=== PATIENT | male | born 1950 | race Caucasian/White ===

== ENCOUNTER 2016-07-27 12:48 | Inpatient (IN) | payer BC ==
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
--- NOTE | 2016-07-27 14:28 | DX ---
Left hip 2 views History: Skiing, fall, left hip pain. Comparison: None available. Findings: There is a minimally displaced subcapital fracture of the left femoral neck. The femoral he ad is not dislocated. Osteopenia is present. Impression: Minimally displaced subcapital left femoral neck fracture.
--- NOTE | 2016-07-27 14:45 | CPEKG ---
Heart Rate: 78 RR Interval: 769 P-R Interval: 168 QRSD Interval: 104 QT Interval: 380 QTC Interval: 433 P [place]: 64 QRS [place]: 46 T Wave [place]: 54 EKG Severity - NORMAL ECG - EKG Impression: SINUS RHYTHM Electronically Signed By: aMddie Locke 27-Jul-2016 21:51:27
[2016-07-27] MEDS ORDERED: HYDROmorphONE/DILAUDID 1 MG/ML SYR ONE (14:46)
[2016-07-27 14:51] LABS: % IMMATURE GRANULYOCYTES 0.4 % (0.0-1.1); ABSOLUTE IMMATURE GRANULOCYTES 0.05 10^3/uL (0.00-0.10); ADD DIFF? NO; ADD MORPH? NO; ADD SCAN? NO; ATYPICAL LYMPHOCYTE FLAG 0 (0-99); FRAGMENT RBC FLAG 0 (0-99); HEMATOCRIT 48.1 % (40.0-51.0); HEMOGLOBIN 17.5 g/dL (13.7-17.5); LEFT SHIFT FLG 0 (0-99); LIPEMIA HEMOLYSIS FLAG 90 (0-99); MEAN CELL HEMOGLOBIN 34.8 pg (27.9-34.1); MEAN CELL HEMOGLOBIN CONCENTR. 36.4 g/dL (32.4-36.7); MEAN CELL VOLUME 95.6 fL (81.5-99.8); MEAN PLATELET VOLUME 8.7 fL (8.7-11.7); PLATELET CLUMPS FLAG 0 (0-99); PLATELET COUNT 169 10^3/uL (150-400); RED BLOOD CELL COUNT 5.03 10^6/uL (4.40-6.38); RED CELL DISTRIBUTION WIDTH 12.5 % (11.5-15.2)
[2016-07-27] MEDS ORDERED: HYDROmorphONE/DILAUDID 2 MG/ML SYR IVP ONE (14:51)
[2016-07-27 15:00] LABS: ANION GAP 13 mEq/L (8-16); CALCIUM 9.2 mg/dL (8.5-10.4); CARBON DIOXIDE 26 mEq/l (22-31); CHLORIDE 102 mEq/L (97-110); GLOMERULAR FILTRATION RATE > 60; GLUCOSE 111 mg/dL (70-100); POTASSIUM 3.8 mEq/L (3.5-5.2); SODIUM 141 mEq/L (134-144)
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
[2016-07-27] MEDS ORDERED: CEFAZOLIN 2 GM/DEXTROSE/100 ML BAG IV ONE (16:09)
[2016-07-27] MEDS ORDERED: BACITRACIN 50,000 UNITS/10 ML SYR IRR ONE (16:21)
[2016-07-27] MEDS ORDERED: BUPIVACAINE/EPI 0.5% 30 ML SDV ONE (16:22)
[2016-07-27] MEDS ORDERED: POLYMYXIN B SULFATE 500,000 UNIT/10 ML SYR IRR ONE (16:22)
[2016-07-27] MEDS ORDERED: BUPIVACAINE 0.5% 30 ML SDV ONE (16:22)
[2016-07-27] MEDS ORDERED: MIDAZOLAM 2 MG/2 ML VIAL ONE (16:30)
[2016-07-27] MEDS ORDERED: FAMOTIDINE 20 MG TAB PO ONE (16:30)
[2016-07-27] MEDS ORDERED: DEXAMETHASONE 4 MG/ML VIAL IVP ONE (16:30)
[2016-07-27] MEDS ORDERED: ACETAMINOPHEN 325 MG TAB PO ONE (16:30)
[2016-07-27] MEDS ORDERED: CEFAZOLIN 2 GM/DEXTR 100 ML IV ONE (16:30)
[2016-07-27] MEDS ORDERED: ROPI/epiNEPH/KETOROLAC JOINT COCKTAIL IU ONE (16:30)
[2016-07-27] MEDS ORDERED: PROPOFOL/EMULSION 500 MG/50 ML BOTTLE IV ONE ×2 (16:35→17:29)
[2016-07-27] MEDS ORDERED: fentaNYL 100 MCG/2 ML INJ ONE (16:35)
[2016-07-27] MEDS ORDERED: ONDANSETRON 4 MG/2 ML VIAL ONE (16:37)
[2016-07-27] MEDS ORDERED: DEXAMETHASONE 4 MG/ML VIAL ONE (16:37)
[2016-07-27] MEDS ORDERED: LIDOCAINE 2% JELLY 5 ML TUBE ONE (16:37)
[2016-07-27] MEDS ORDERED: PROPOFOL 200 MG/20 ML VIAL ONE ×2 (18:12→18:30)
[2016-07-27] MEDS ORDERED: TEMAZEPAM 15 MG CAP PO PRN (18:52)
[2016-07-27] MEDS ORDERED: BISACODYL 10 MG SUPP PR PRN (18:52)
[2016-07-27] MEDS ORDERED: LACTULOSE 20 GM/30 ML UDCUP PO PRN (18:52)
[2016-07-27] MEDS ORDERED: OXYCODONE/APAP 5/325 TAB PO PRN (18:52)
[2016-07-27] MEDS ORDERED: POLYETHYLENE GLYCOL 3350 17 GM PKT PO PRN (18:52)
[2016-07-27] MEDS ORDERED: MAGNESIUM HYDROXIDE 30 ML UDCUP PO PRN (18:52)
[2016-07-27] MEDS ORDERED: HYDROCODONE/APAP 5/325 TAB PO PRN (18:52)
[2016-07-27] MEDS ORDERED: ONDANSETRON 4 MG/2 ML VIAL IVP PRN (18:52)
--- NOTE | 2016-07-27 18:52 | POSTOPPROG ---
Post Op Note Date of Operation: 07/27/16 Surgeon: Jessica Montgomery Anesthesiologist: vonda Anesthesia: Epidural Pre-op Diagnosis: l hip Procedure: l hip williams Inf/Abcess present in the surg proc area at time of surgery?: Yes Depth: Deep Incisional (Fascial) EBL: 100-500
[2016-07-27 19:02] LABS: HEMATOCRIT 49.6 % (40.0-51.0); HEMOGLOBIN 17.6 g/dL (13.7-17.5)
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
--- NOTE | 2016-07-27 21:54 | DX ---
AP pelvis. July 27, 2016. HISTORY: Postop. FINDINGS: Surgical features of a left total hip arthroplasty are identified, without hardware complic ation. IMPRESSION: 1. Left hip arthroplasty.
--- NOTE | 2016-07-27 21:55 | DX ---
Intraoperative fluoroscopy. Discussion: 13.9 seconds of intraoperative fluoroscopy utilized by Dr. Christin Montgomery during left hip arthr oplasty. Single matrix radiograph obtained during the procedure demonstrates placement of a left hip prosthesi s without complication. IMPRESSION: 1. Intraoperative fluoroscopy during left hip surgery.
[2016-07-27] MEDS: SENNOSIDES/DOCUSATE SODIUM TAB PO SCH (22:22)
[2016-07-28] MEDS: KETOROLAC 15 MG/1 ML SDV IVP SCH ×3 (00:29→12:21)
[2016-07-28] MEDS: traMADol 50 MG TAB PO SCH ×3 (00:29→12:20)
[2016-07-28] MEDS: ACETAMINOPHEN 325 MG TAB PO SCH ×3 (00:30→12:20)
[2016-07-28] MEDS ORDERED: NATURE THYROID PO SCH (09:00)
[2016-07-28] MEDS ORDERED: RIVAROXABAN 10 MG TAB PO SCH (09:00)
--- NOTE | 2016-07-28 09:23 | SOAPPROG ---
SOAP Progress Note Assessment/Plan: Assessment: Plan: Subjective: states he's comfortable dressing with sang drainage NVI PT DC if cleared by PT Objective: Vital Signs Temp Pulse Resp BP Pulse Ox 36.6 C 70 14 110/63 98 07/28/16 08:00 07/28/16 08:00 07/28/16 08:00 07/28/16 08:00 07/28/16 08:00 Laboratory Results 07/27/16 14:31 07/27/16 14:31 07/27/16 07/28/16 07/29/16 05:59 05:59 05:59 Intake Total 1600 Output Total 1550 200 Balance 50 -200 ICD10 Worksheet Patient Problems: Problems Problem Status Diagnosed Fracture of femoral neck, left Acute
[2016-07-28] MEDS: SENNOSIDES/DOCUSATE SODIUM TAB PO SCH (10:39)
[2016-07-28 11:43] VITALS: BP 115/61; PULSE 69; RESP 15; TEMP 98.2; O2SAT 97
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
== END 2016-07-28 12:31 | disposition home or self-care (01) | DRG 470 ==
LOC: F3N 19:43
PROVIDERS: ADMIT Orthopaedic Surgery; ATTEND Orthopaedic Surgery
PROC: 0SRB0JZ Replacement of Left Hip Joint with Synthetic Substitute, Open Approach (ICD-10-PCS; principal; 2016-07-27 16:39)
DX: S72.002A Fracture of unspecified part of neck of left femur, initial encounter for closed fracture (principal); V00.321A Fall from snow-skis, initial encounter; Y93.23 Activity, snow (alpine) (downhill) skiing, snowboarding, sledding, tobogganing and snow tubing; Y92.830 Public park as the place of occurrence of the external cause
CPT/HCPCS: 96374; 97161-GP; 97165-GO; J0171; J0690; J1100; J1170; J1885; J2250; J2405; J2704; J2795; J3010